=== PATIENT | male | born 1990 | race African-American/Black ===

== ENCOUNTER 2016-12-02 19:43 | Emergency (ER) | payer SELFPAY ==
[~2016-12-02] VITALS: Ht 185.4 cm; Wt 72.0 kg
[2016-12-02 19:46] VITALS: BP 125/55
== END 2016-12-02 22:20 | disposition left against medical advice (07) ==
LOC: ER 19:45
DX: G40.909 Epilepsy, unspecified, not intractable, without status epilepticus (principal); S09.8XXA Other specified injuries of head, initial encounter; W18.39XA Other fall on same level, initial encounter; Y93.89 Activity, other specified; Y92.480 Sidewalk as the place of occurrence of the external cause
CPT/HCPCS: 99283